=== PATIENT | female | born 2000 | race African-American/Black ===

== ENCOUNTER 2025-03-04 14:45 | Emergency (ER) | payer MEDICAID ==
[~2025-03-04] VITALS: Ht 175.3 cm; Wt 59.0 kg
[2025-03-04 15:07] VITALS: TEMP 97.9
[2025-03-04 16:15] VITALS: BP 128/65; PULSE 66; RESP 18; O2SAT 98
[2025-03-04] MEDS: KETOROLAC TROMETHAMINE 30 MG/ML VIAL IM ONE (16:49)
[2025-03-04] MEDS: TETANUS/DIPHTHERIA TOXOID [TENIVAC] [7YR+] 0.5 ML SYRINGE IM. ONE (16:50)
== END 2025-03-04 18:01 | disposition home or self-care (01) ==
LOC: EMS 14:48
DX: S62.325A Displaced fracture of shaft of fourth metacarpal bone, left hand, initial encounter for closed fracture (principal); X50.0XXA Overexertion from strenuous movement or load, initial encounter; Y93.89 Activity, other specified; Y92.89 Other specified places as the place of occurrence of the external cause; Y99.8 Other external cause status
CPT/HCPCS: 90471; 90714; 96372; 99284; J1885